=== PATIENT | female | born 1990 | race Caucasian/White ===

== ENCOUNTER 2018-07-07 17:42 | Emergency (ER) | payer SELFPAY ==
[2018-07-07 18:29] VITALS: BP 124/69
[2018-07-07] MEDS ORDERED: predniSONE TAB* 20 MG PO ONE (18:35)
[2018-07-07] MEDS ORDERED: Albuterol 2.5 MG/3 ML NEB.SOL* (0.083%) INH ONE (18:35)
--- NOTE | 2018-07-07 18:38 | UC ---
UC General HPI - HPI Summary HPI Summary: DAY 6 OF HEAD CONGESTION, COUGH AND CHEST CONGESTION. + CHILLS, SOB, WHEEZING. NO ASTHMA. STOPPED SMOKING 1 MONTH AGO. WAS SICK A WEEK PRIOR TO THIS BUT GOT BETTER. HAVING STRESS INCONTINENCE WITH THE COUGH. - History of Current Complaint Chief Complaint: UCRespiratory Stated Complaint: COUGH,CONGESTION Time Seen by Provider: 07/07/18 18:31 Hx Obtained From: Patient Hx Last Menstrual Period: [id number] Pain Intensity: 8 Associated Signs & Symptoms: Negative: Chest Pain - Allergy/Home Medications Allergies/Adverse Reactions: Allergies Allergy/AdvReac Type Severity Reaction Status Date / Time No Known Allergies Allergy Verified 07/07/18 18:23 PMH/Surg Hx/FS Hx/Imm Hx Previously Healthy: Yes - Surgical History Surgical History: Yes Surgery Procedure, Year, and Place: T&A - Family History Known Family History: Positive: Non-Contributory - Social History Occupation: Employed Full-time Alcohol Use: Rare Substance Use Type: None Smoking Status (MU): Former Smoker - Immunization History Vaccination Up to Date: Yes Review of Systems All Other Systems Reviewed And Are Negative: Yes Constitutional: Positive: Chills ENT: Positive: Sinus Congestion Respiratory: Positive: Shortness Of Breath, Cough Cardiovascular: Negative: Chest Pain Physical Exam Triage Information Reviewed: Yes Appearance: Well-Appearing Vital Signs: Initial Vital Signs Temp 98.1 F 07/07/18 18:23 Pulse 105 07/07/18 18:23 Resp 36 07/07/18 18:23 BP 124/69 07/07/18 18:23 Pulse Ox 98 07/07/18 18:23 Vital Signs Reviewed: Yes Eyes: Positive: Conjunctiva Clear ENT: Positive: Pharynx normal, Nasal congestion, Nasal drainage - CLEAR, TMs normal Neck: Positive: Supple, Nontender, No Lymphadenopathy Respiratory: Positive: No respiratory distress, Decreased breath sounds, Other: - FREQUENT - BRONCHOSPATIC COUGH THAT IS NON PRODUCTIVE Cardiovascular: Positive: RRR, No Murmur. Negative: Tachycardia Abdomen Description: Positive: Nontender, No Organomegaly, Soft Bowel Sounds: Positive: Present Musculoskeletal: Positive: ROM Intact Neurological: Positive: Alert Psychological: Positive: Age Appropriate Behavior Skin Exam: Normal Diagnostics - Radiology No standard instances Radiology Interpretation Completed By: ED Physician - cxr=nad Re-Evaluation - Re-Evaluation First Eval Re-Evaluation Time: 19:40 Change: Improved - much improved aeration but continues with the cough. Course/Dx - Differential Dx - Multi-Symptom Differential Diagnoses: Other - NO INFLITRATE ON CXR. - Diagnoses Provider Diagnosis: URI (upper respiratory infection), Cough, Bronchospasm, acute Discharge - Sign-Out/Discharge Documenting (check all that apply): Patient Departure All imaging exams completed and their final reports reviewed: No - Discharge Plan Condition: Stable Disposition: HOME Prescriptions: Albuterol HFA INHALER* [Ventolin HFA Inhaler*] 2 puff INH Q6H #1 mdi Azithromycin TAB* [Zithromax TAB (Z-ZACH) 250 mg #6 tabs] 2 tab PO .TODAY, THEN 1 DAILY #1 zach Benzonatate CAP* [Tessalon 100 MG CAP*] 100 mg PO TID PRN #10 cap PRN Reason: Cough predniSONE [Prednisone 20 MG TAB] 40 mg PO DAILY 4 Days #8 tablet Patient Education Materials: Upper Respiratory Infection (DC), Acute Cough (ED) , Bronchospasm (ED) - Billing Disposition and Condition Condition: STABLE Disposition: Home
--- NOTE | 2018-07-08 08:30 | UC ---
- EKG/XRAY/CT Xray Comments: wet read correct Course/Dx - Diagnoses Provider Diagnoses: URI (upper respiratory infection), Cough, Bronchospasm, acute Discharge - Sign-Out/Discharge Documenting (check all that apply): Patient Departure All imaging exams completed and their final reports reviewed: Yes - Discharge Plan Condition: Stable Disposition: HOME Prescriptions: Albuterol HFA INHALER* [Ventolin HFA Inhaler*] 2 puff INH Q6H #1 mdi Azithromycin TAB* [Zithromax TAB (Z-ZACH) 250 mg #6 tabs] 2 tab PO .TODAY, THEN 1 DAILY #1 zach Benzonatate CAP* [Tessalon 100 MG CAP*] 100 mg PO TID PRN #10 cap PRN Reason: Cough predniSONE [Prednisone 20 MG TAB] 40 mg PO DAILY 4 Days #8 tablet Patient Education Materials: Upper Respiratory Infection (DC), Bronchospasm (ED ), Acute Cough (ED) Forms: *Work Release Referrals: Dylon Santos [Nurse Practitioner] - - Billing Disposition and Condition Condition: STABLE Disposition: Home
== END 2018-07-07 19:52 | disposition home or self-care (01) ==
LOC: UCCORT 17:42
DX: J06.9 Acute upper respiratory infection, unspecified (principal); J98.01 Acute bronchospasm
CPT/HCPCS: 71046; 99202; G0463; J7512